=== PATIENT | female | born 1980 ===

== ENCOUNTER 2021-01-11 16:10 | Emergency (ER) | payer OTHER, SELFPAY ==
--- NOTE | ~2021-01-11 | CT_ITS ---
EXAMINATION: CT HEAD WITHOUT CONTRAST CLINICAL INFORMATION: Headache COMPARISON: None TECHNIQUE: Contiguous axial imaging was performed from the skull base to vertex without intravenous administration of contrast. This CT examination was performed using dose optimization techniques as appropriate, variously including the following: *Automated exposure control *Adjustment of mA and/or kV according to patient size (this includes techniques or standardized protocols for targeted exams where dose is matched to indication/reason for exam; i.e. extremities or head) *Use of iterative reconstruction technique DLP: 595 mGy-cm FINDINGS: There is no evidence of acute intracranial hemorrhage or territorial infarction. No abnormal mass effect or midline shift is seen. Schmidt to white matter differentiation is well preserved. No extra-axial fluid collections are identified. The ventricles are normal in size. There is no abnormal attenuation within the brain parenchyma. The osseous structures and soft tissues are normal. Mild mucosal thickening of the left sphenoid sinus. Other visualized paranasal sinuses and mastoid air cells are well aerated. CT/CT head/brain wo con IMPRESSION: No acute intracranial pathology.
--- NOTE | ~2021-01-11 | XR_ITS ---
EXAMINATION: XR CHEST CLINICAL INFORMATION: Chest pain COMPARISON: None TECHNIQUE: Frontal view of the chest was obtained. FINDINGS: Cardiac silhouette is normal in size. Lungs are well aerated. There is no lobar consolidation. No pleural effusion or pneumothorax. No gross osseous abnormality. XR/XR chest 1V IMPRESSION: No acute pulmonary pathology.
--- NOTE | 2021-01-11 16:17 | ECG_ITS ---
Test Reason : CHEST PRESSURE Blood Pressure : / mmHG Vent. Rate : 076 BPM Atrial Rate : 076 BPM P-R Int : 152 ms QRS Dur : 082 ms QT Int : 386 ms P-R-T Axes : 076 042 062 degrees QTc Int : 434 ms Normal sinus rhythm with sinus arrhythmia Possible Left atrial enlargement RSR' or QR pattern in V1 suggests right ventricular conduction delay Abnormal ECG No previous ECGs available Referred By: Generic ED Physician Electronically Signed By:ANDREEA ANDRE
[2021-01-11 16:27] VITALS: BP 168/110; BP 168/99; PULSE 68; RESP 20; TEMP 36.9; O2SAT 98; O2SAT 99; BMI 29.9
[2021-01-11 17:09] VITALS: BP 151/105; PULSE 68; RESP 20; TEMP 37.3; O2SAT 99
[2021-01-11 17:27] VITALS: BP 171/100; PULSE 71; RESP 12; O2SAT 97
--- NOTE | 2021-01-11 17:38 | ED_ITS ---
HPI - Chest Pain General Chief Complaint: Chest Pain Stated Complaint: cp Time Seen by Provider: 01/11/21 17:11 Source: patient Mode of arrival: ambulatory Limitations: no limitations History of Present Illness HPI narrative: [age] year female with past medical history of cyclic vomiting and heroin abuse presents to ED for multiple complaints. Patient states chest pain , BODYACHES, DOUBLE VISION, nausea, FEELING ANXIOUS and abdominal cramping FOR THE PAST 3 DAYS SINCE LAST HEROINE USE. Patient states she last used heroin 3 days ago. Patient went to detox program her blood pressure was too high so sent her to the ED. patient has been off methadone for months. Patient does not want to be on Suboxone. Patient states having headache after receiving nitro paste. MD complaint: chest discomfort Related Data Allergies Allergy/AdvReac Type Severity Reaction Status Date / Time haloperidol [From Haldol] AdvReac Shakiness Verified 01/11/21 16:34 metoclopramide [From Reglan] AdvReac Involuntary Verified 01/11/21 16:34 Spasms prochlorperazine AdvReac Involuntary Verified 01/11/21 16:34 [From Compazine] Spasms Review of Systems Review of Systems: Yes all other systems are reviewed and are negative Constitutional: Constitutional: Reports as per HPI, Reports no additional constitutional complaints and Reports headache(s) Eyes: Eyes: Reports as per HPI and Reports diplopia ENT: Reports system reviewed and no additional complaints, except as documented, Reports as per HPI and Reports headache(s) Cardiovascular: Cardiovascular: Reports as per HPI, Reports no additional cardiovascular complaints and Reports chest pain Respiratory: Respiratory: Reports as per HPI and Reports no additional respiratory complaints Gastrointestinal: Gastrointestinal: Reports as per HPI, Reports no additional gastrointestinal complaints, Reports abdominal pain and Reports nausea Genitourinary: Genitourinary: Reports no additional female genitourinary complaints and Reports as per HPI Musculoskeletal: Musculoskeletal: Reports no additional musculoskeletal complaints and Reports as per HPI Neurologic: Reports system reviewed and no additional complaints, except as documented, Reports as per HPI and Reports headache(s) Psychiatric: Psychiatric: Reports no additional psychiatric complaints and Reports as per HPI REPLACED BY [facility] Social History Social History Alcohol intake: former Patient Tobacco Use Status: Tobacco use Unknown Use of substances other than those prescribed or required for medical reasons: Yes Substance Use Type: Heroin Substance Use Frequency Other:: on 5th day of detox from heroin Advance Directives: No Advance Directives Information Provided: No Patient : No Physical Exam Vital Signs: Vital Signs: Last Vital Signs Temp 99.2 F 01/11/21 19:18 Pulse 65 01/11/21 22:07 Resp 16 01/11/21 22:07 BP 155/97 H 01/11/21 22:07 Pulse Ox 97 01/11/21 22:07 Body Mass Index 29.9 Const: General: cooperative, healthy appearing, comfortable, no acute distress , well developed, alert, awake and Physically active Orientation/consciousness: oriented to person, oriented to place, oriented to time and patient oriented x3 HENMT: Head: Yes normal to inspection, Yes No palpable skull fracture present, Yes normocephalic, Yes atraumatic and No abrasion Eyes: Other: PATIENT HAS VISION IN ALL VISUAL QUADRANTS. General: appearance normal, both eyes and all related structures Neck: Neck: Yes normal visual inspection, Yes full ROM, Yes no lymphadenopathy, Yes trachea midline, Yes supple and No tender Chest: Chest palpation & inspection: normal inspection of the chest and normal palpation of entire chest wall Resp: Effort & Inspection: normal respiratory effort and able to speak in complete sentences Auscultation: clear to auscultation bilaterally Cardio: Jugular venous distension: no JVD Heart sounds: S1 normal heart sound present and S2 normal heart sound present GI: Inspection: Yes normal to inspection Palpation (GI): Soft to palpation, not firm, nontender, no guarding and not rigid : General: No CVA tenderness and Yes no CVA tenderness Back/Spine/Pelvis: Back: no CVA tenderness, No CVA tenderness and No ecchymosis Skin: General skin exam: no rashes or lesions noted and elasticity normal Neuro: General: oriented to person, oriented to place, oriented to time, patient oriented x3, gait normal and CN's II-XI intact bilaterally Extrem: General: Yes normal to inspection and Yes full ROM Psych: Appearance: grossly normal, well kempt and not disheveled NIH Stroke Scale Level of Consciousness: Alert Level of Consciousness Questions: Answers both questions correctly Level of Consciousness Commands: Performs both tasks correctly Best Gaze: Normal Visual: No visual loss Facial Palsy: Normal Motor Arm (Right): No drift Motor Arm (Left): No drift Motor Leg (Right): No drift Motor Leg (Left): No drift Limb Ataxia: Absent Sensory: Normal Best Language: No aphasia Dysarthia: Normal Extinction and Inattention: No abnormality Score: 0 Course Course Course Narrative: History physical exam indicate some opiate withdrawal, but will do cardiovascular evaluation. EKG labs ordered. Chest x-ray ordered. Zofran and clonidine give read for opiate withdrawal symptoms. Fluids ordered. Reevaluation(s) Reevaluation #1: EKG negative for STEMI. Troponin negative. D-dimer negative. Perc score is 0. Patient is sleeping comfortably in bed after receiving Zofran,ATIVAN, gi COCKTAIL and clonidine. Patient will be discharged. Blood pressure monitor 129/70. NOT SUSPECTING STROKE. NEGATIVE FOR ANY NEURO DEFICIT Time: 21:24 Reevaluation #2: PATIENT STATES SHE FELT BETTER AND WANT TO BE DISCHARGED TO GO BACK TO HER DETOX PROGRAM. PATIENT INFORM THE S SYMPTOMS WERE DUE TO OPIATE WITHDRAWAL WILL BENEFIT FROM A DETOX PROGRAM. PATIENT ALSO INFORMED TO FOLLOW- UP WITH THE PRIMARY CARE PROVIDER TO KEEP TRACK OF HER BLOOD PRESSURE TO SEE IF SHE IS DEVELOPING HIGH BLOOD PRESSURE. PATIENT NOT HAVING AN MT OR PE. PATIENT INFORMED TO RETURN TO THE ED IF SYMPTOMS WORSEN OR HAS ANY OTHER CONCERNING SYMPTOMS. MDM - Chest Pain MDM Narrative Medical decision making narrative: Opiate withdrawal syndrome Lab Data Result diagrams: 01/11/21 17:44 01/11/21 17:43 Labs: Lab Results 01/11/21 01/11/21 01/11/21 Range/Units 17:43 17:43 17:43 WBC (4.8-10.8) X10*3/uL RBC (4.20-5.50) X10*6/uL Hgb (12.0-16.0) g/dl Hct (37-47) % MCV (80-98) fL MCH (27.0-33.0) pg MCHC (31.0-35.0) g/dl RDW (11.0-16.0) % Plt Count (160-400) X10*3/uL MPV (9.4-12.3) fL Immature Gran % (Auto) (0.0-0.4) % Neut % (Auto) (45-73) % Lymph % (Auto) (20-40) % Stoddard % (Auto) (2-11) % Eos % (Auto) (0-4) % Baso % (Auto) (0-2) % Lymph # (Auto) (1.2-4.9) X10*3/uL Stoddard # (Auto) (0.1-1.2) X10*3/uL Eos # (Auto) (0.0-0.4) X10*3/uL Baso # (Auto) (0.0-0.2) X10*3/uL Abs Immat Gran (auto) (0.00-0.03) X10*3/uL Absolute Neuts (auto) (2.0-8.3) X10*3/uL Absolute Nucleated RBC (0.0-0.012) X10*3/uL Nucleated RBC % (auto) (0.0-0.2) /100WBC PT 14.8 H (9.9-13.0) SEC INR 1.3 H (0.9-1.1) APTT 41.7 H (24.1-38.0) SEC D-Dimer < 200 NG/ML Sodium 138 (135-145) mmol/L Potassium 3.8 (3.3-5.1) mmol/L Chloride 104 (96-108) mmol/L Carbon Dioxide 21 L (22-29) mmol/L Anion Gap 17 (12-20) BUN 17 H (9-16) mg/dL Creatinine 0.71 (0.5-1.4) mg/dL Estim Creat Clear Calc 101.4 Estimated GFR > 60 Random Glucose 90 (60-115) mg/dL Calcium 9.5 (8.4-10.2) mg/dL Total Bilirubin 0.8 (0.0-1.0) mg/dL AST 16 (5-31) U/L ALT 13 (0-31) U/L Alkaline Phosphatase 58 (39-117) U/L Troponin I High Sens 3.6 (<3.5-17.0) ng/L B-Natriuretic Peptide 34 (<100) pg/mL Total Protein 7.0 (6.5-8.0) g/dL Albumin 4.5 (3.5-5.0) g/dL Beta HCG, Quant < 2 mIU/mL COVID-19 (AISHWARYA) (Negative) COVID-19 Clin Com 01/11/21 01/11/21 Range/Units 17:43 17:44 WBC 10.7 (4.8-10.8) X10*3/uL RBC 5.45 (4.20-5.50) X10*6/uL Hgb 15.4 (12.0-16.0) g/dl Hct 46.0 (37-47) % MCV 84.4 (80-98) fL MCH 28.3 (27.0-33.0) pg MCHC 33.5 (31.0-35.0) g/dl RDW 13.8 (11.0-16.0) % Plt Count 373 (160-400) X10*3/uL MPV 10.3 (9.4-12.3) fL Immature Gran % (Auto) 0.2 (0.0-0.4) % Neut % (Auto) 61.0 (45-73) % Lymph % (Auto) 29.0 (20-40) % Stoddard % (Auto) 9.4 (2-11) % Eos % (Auto) 0.2 (0-4) % Baso % (Auto) 0.2 (0-2) % Lymph # (Auto) 3.1 (1.2-4.9) X10*3/uL Stoddard # (Auto) 1.0 (0.1-1.2) X10*3/uL Eos # (Auto) 0.0 (0.0-0.4) X10*3/uL Baso # (Auto) 0.0 (0.0-0.2) X10*3/uL Abs Immat Gran (auto) 0.02 (0.00-0.03) X10*3/uL Absolute Neuts (auto) 6.5 (2.0-8.3) X10*3/uL Absolute Nucleated RBC 0.000 (0.0-0.012) X10*3/uL Nucleated RBC % (auto) 0.0 (0.0-0.2) /100WBC PT (9.9-13.0) SEC INR (0.9-1.1) APTT (24.1-38.0) SEC D-Dimer NG/ML Sodium (135-145) mmol/L Potassium (3.3-5.1) mmol/L Chloride (96-108) mmol/L Carbon Dioxide (22-29) mmol/L Anion Gap (12-20) BUN (9-16) mg/dL Creatinine (0.5-1.4) mg/dL Estim Creat Clear Calc Estimated GFR Random Glucose (60-115) mg/dL Calcium (8.4-10.2) mg/dL Total Bilirubin (0.0-1.0) mg/dL AST (5-31) U/L ALT (0-31) U/L Alkaline Phosphatase (39-117) U/L Troponin I High Sens (<3.5-17.0) ng/L B-Natriuretic Peptide (<100) pg/mL Total Protein (6.5-8.0) g/dL Albumin (3.5-5.0) g/dL Beta HCG, Quant mIU/mL COVID-19 (AISHWARYA) Negative (Negative) COVID-19 Clin Com See Note ECG Data ECG #1: Interpretation: Normal sinus rhythm. Ventricular rate 76. Parents of 152. QRS 82. QTC 434. Negative STEMI Discharge Plan Discharge Clinical Impression: Opiate withdrawal Patient Disposition: Home, Self-Care Instructions: Chest Pain (ED), Opioid Withdrawal (ED) Additional Instructions: Please follow-up with your primary care provider and detox program. Return to the ED for any slurred speech, facial droop, loss of vision, paralysis of extremities, headache, chest pain, shortness of breath, or any other concerning symptoms. Interventions: ED Discharge Assessment Last Done: 01/11/21 23:28 Print Language: Belarusian
[2021-01-11] MEDS: ondansetron HCL 4 MG/2 ML VIAL IVPUSH (17:45)
[2021-01-11] MEDS: 0.9 % Sodium Chloride 1,000 ML 999 ML IV (17:45)
[2021-01-11 17:50] VITALS: BP 160/113; PULSE 66
[2021-01-11] MEDS: cloNIDine HCL 0.1 MG TABLET PO (17:50)
[2021-01-11 17:51] LABS: MANUAL DIFF FLAG NO
[2021-01-11 17:52] LABS: Basophils Percent Auto 0.2 % (0-2); Eosinophils Percent Auto 0.2 % (0-4); Hemoglobin 15.4 g/dl (12.0-16.0); Imm Gran Abs Auto 0.02 X10*3/uL (0.00-0.03); Imm Gran Pct Auto 0.2 % (0.0-0.4); Lymphocytes Absolute Auto 3.1 X10*3/uL (1.2-4.9); Mean Corpuscular HGB Conc 33.5 g/dl (31.0-35.0); Mean Corpuscular Hemoglobin 28.3 pg (27.0-33.0); Mean Corpuscular Volume 84.4 fL (80-98); Mean Platelet Volume 10.3 fL (9.4-12.3); Monocytes Percent Auto 9.4 % (2-11); Neutrophils Absolute Auto 6.5 X10*3/uL (2.0-8.3); Platelet Count 373 X10*3/uL (160-400); Red Blood Count 5.45 X10*6/uL (4.20-5.50); Red Cell Distribution Width 13.8 % (11.0-16.0); White Blood Count 10.7 X10*3/uL (4.8-10.8)
[2021-01-11 17:58] LABS: INTERNATIONAL NORM RATIO 1.3 (0.9-1.1); Prothrombin Time 14.8 SEC (9.9-13.0)
[2021-01-11 18:00] LABS: Partial Thromboplastin Time 41.7 SEC (24.1-38.0)
[2021-01-11 18:09] LABS: Alanine Aminotransferase 13 U/L (0-31); Albumin Level 4.5 g/dL (3.5-5.0); Alkaline Phosphatase 58 U/L (39-117); Anion Gap 17 (12-20); Aspartate Amino Transferase 16 U/L (5-31); Bilirubin Total 0.8 mg/dL (0.0-1.0); Blood Urea Nitrogen 17 mg/dL (9-16); Calcium 9.5 mg/dL (8.4-10.2); Carbon Dioxide 21 mmol/L (22-29); Chloride 104 mmol/L (96-108); Creatinine Clr Calc Pharmacy 101.4; Estimated Glomerular Filt Rate > 60; Glucose Random 90 mg/dL (60-115); Potassium 3.8 mmol/L (3.3-5.1); Sodium 138 mmol/L (135-145)
[2021-01-11 18:11] LABS: COVID-19 Test Negative (Negative)
[2021-01-11 18:15] LABS: HCG Quantitative < 2 mIU/mL
[2021-01-11 18:16] LABS: B Type Natriuretic Peptide 34 pg/mL (<100); Troponin-I High Sensitivity 3.6 ng/L (<3.5-17.0)
[2021-01-11] MEDS: Ketorolac Tromethamine 15 MG/ML VIAL 30 MG IVPUSH (18:38)
--- NOTE | 2021-01-11 18:39 | PC.NURSE ---
pt declining to go to CT d/t pain. aware and medication just given. ct aware.
[2021-01-11 19:18] VITALS: BP 152/99; PULSE 71; RESP 18; TEMP 37.3; O2SAT 98
--- NOTE | 2021-01-11 19:35 | PC.NURSE ---
Pt alert and oriented x4, pt cooperative but noted to be very anxious and tearful. Pt states she feels anxious at this time. Pt denies abd pain, states nausea and headache, no vomiting noted. Pt blood pressure more controlled at 152/99 at this time. IV intact. Pt resting in stretcher, will continue to monitor.
[2021-01-11 19:47] LABS: D Dimer < 200 NG/ML
[2021-01-11] MEDS: LORazepam 2 MG/ML VIAL 1 MG IVPUSH (22:01)
[2021-01-11] MEDS: Famotidine/PF 20 MG/2 ML VIAL IVPUSH (22:02)
[2021-01-11] MEDS: Lidocaine HCl Viscous 2 % 15 ML SOLUTION MUCOUS MEM (22:02)
[2021-01-11] MEDS: PHENobarb/Hyoscy/Atropine/Scop 10 ML ELIXIR PO (22:02)
[2021-01-11 22:07] VITALS: BP 155/97; PULSE 65; RESP 16; O2SAT 97
--- NOTE | 2021-01-11 23:34 | PC.NURSE ---
Pt alert and oriented x4, calm and cooperative. Pt denies pain. Pt states withdrawal symptoms are manageable at this time, pt does not appear to be in distress at this time. IV removed. Vitals stable. 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
== END 2021-01-12 01:20 | disposition home or self-care (01) ==
PROVIDERS: Physician Assistant; Emergency Provider Emergency Medicine
DX: F11.13 Opioid abuse with withdrawal (principal); R07.9 Chest pain, unspecified; Z20.822 Contact with and (suspected) exposure to COVID-19; Z71.51 Drug abuse counseling and surveillance of drug abuser; Z79.899 Other long term (current) drug therapy
CPT/HCPCS: 36415; 70450; 71045; 80053; 83880; 84484; 84702; 85025; 85379; 85610; 85730; 87635; 93005; 96361; 96374; 96375; 99284; 99285; J1885; J2060; J2405

== ENCOUNTER 2021-01-12 02:02 | Emergency (ER) | payer OTHER, SELFPAY ==
[2021-01-12] VITALS (9 sets, daily range): BP systolic 123–199; BP diastolic 73–103; PULSE 62–79; RESP 13–18; TEMP 35.7–37; O2SAT 93–98; BMI 24.2
--- NOTE | 2021-01-12 02:18 | PC.NURSE ---
Pt discharged back to facility where she came from for detox, facility called by staff prior to discharge. Pt resturns due to being discharged from facility earlier today and does not have a bed for her. Told by facility to call intake in the morning [phone] at [phone], spoke with Bert. Pt currently states she is anxious, no pain at this time. Vitals stable.
[2021-01-12] MEDS: LORazepam 1 MG TABLET 2 MG PO ×2 (02:36→09:26)
--- NOTE | 2021-01-12 02:42 | ED_ITS ---
HPI - General Adult General Chief complaint: General Medical Stated complaint: detox Time Seen by Provider: 01/12/21 02:31 Source: patient Mode of arrival: EMS Limitations: no limitations History of Present Illness HPI narrative: Patient history of opiate abuse uses heroin last use was 3 days ago but just seen here and discharged to detox for detox does not any bed comes here to get a bed in the morning. Patient does complain of body aches anxious abdominal cramping asking for some medication to sleep and relax Related Data Allergies Allergy/AdvReac Type Severity Reaction Status Date / Time haloperidol [From Haldol] AdvReac Shakiness Verified 01/11/21 16:34 metoclopramide [From Reglan] AdvReac Involuntary Verified 01/11/21 16:34 Spasms prochlorperazine AdvReac Involuntary Verified 01/11/21 16:34 [From Compazine] Spasms Review of Systems Review of Systems: Yes all other systems are reviewed and are negative [facility] Social History Social History Alcohol intake: never Patient Tobacco Use Status: Current everyday Tobacco user Use of substances other than those prescribed or required for medical reasons: Yes Substance Use Type: Heroin Advance Directives: No Physical Exam Vital Signs: Vital Signs: Last Vital Signs Temp 97.8 F 01/12/21 03:00 Pulse 66 01/12/21 03:00 Resp 18 01/12/21 03:00 BP 199/103 H 01/12/21 03:00 Pulse Ox 98 01/12/21 03:00 Body Mass Index 24.2 Appearance: Alert. Oriented X3. No acute distress. Eyes: No pallor or icterus ENT: Pharynx normal. Oral Mucosa moist Neck: Normal inspection. Neck supple. CVS: Normal heart rate and rhythm. Pulses normal. Respiratory: No respiratory distress. Equal air entry bilateral, no wheezing /rales/rhonchi Abdomen: Soft and nontender. Bowel sounds are present, no mass palpable, no CVA tenderness Skin: Skin warm and dry. Normal skin color. Normal skin turgor. Extremities: No lower extremity edema. No calf tenderness Neuro: Oriented X 3. No motor deficit. Medical Decision Making MDM Narrative Medical decision making narrative: Patient heroin dependent need detox placement will get oil recovery operator in the morning to help her out patient medically cleared slept last night after Ativan and clonidine Discharge Plan Discharge Clinical Impression: Opiate addiction Qualifiers: Substance use status: in withdrawal Qualified Code(s): F11.23 - Opioid dependence with withdrawal
[2021-01-12] MEDS: cloNIDine HCL 0.2 MG TABLET PO ×2 (02:54→09:26)
--- NOTE | 2021-01-12 08:35 | PC.NURSE ---
pt states she has generalized aches, chest pressure, nausea. Pt states she feels like she is withdrawing. doc at bedside
--- NOTE | 2021-01-12 10:19 | MHC.RECOVSUP ---
Recovery Support note: Patient is a 40 year old Sammarinese speaking female who presented to [facility] for medical clearance after being sent from [facility]. This sports writer spoke with patient who reports that she would like to return to [facility] if possible. [facility] requested documentation of medical work up which was provided. [facility] states they will only consider taking patient if her blood pressure is stable (140-150 systolic max) for 24 hours without IV intervention. Discussed with patient. Patient reports she is feeling much better after being medicated and that she would rather discharge home. Patient reports she has very supportive family and a safe place to return. Patient reports last using on Sunday and that she feels she is through the worst of the withdrawal. Discussed outpatient resources with patient and provided information. Patient requested medication for blood pressure and patient's provider discussed this with her. Discussed case with patient's RN and ED provider.
[2021-01-12] MEDS: cloNIDine 0.2 MG PATCH.TDWK TRANSDERMA (10:30)
--- NOTE | 2021-01-12 11:39 | PC.NURSE ---
pt is slightly sleepy but ambulating with a steady gait, pt calling for a ride
== END 2021-01-12 11:48 | disposition home or self-care (01) ==
PROVIDERS: Emergency Provider Emergency Medicine Emergency Medical Services
DX: F11.23 Opioid dependence with withdrawal (principal); Z71.51 Drug abuse counseling and surveillance of drug abuser; Z79.899 Other long term (current) drug therapy
CPT/HCPCS: 99285

== ENCOUNTER 2021-01-12 18:53 | Emergency (ER) | payer OTHER, SELFPAY ==
[2021-01-12 20:35] VITALS: BP 174/111; PULSE 71; RESP 20; TEMP 36.7; O2SAT 99; BMI 29.9
--- NOTE | 2021-01-12 20:47 | ED.GENADULT ---
HPI - General Adult General Chief complaint: General Medical Stated complaint: cp, high bp Time Seen by Provider: 01/12/21 20:01 Source: patient Mode of arrival: ambulatory Limitations: no limitations History of Present Illness HPI narrative: Patient been here 2 times in last 48 hours for opiate withdrawal left today morning comes back as her blood pressure was high and was not able to get into detox patient does not have any history of hypertension but has strong family history hypertension. On arrival patient's blood pressure 174/111 patient is slightly anxious but in last:48 hours blood pressure been fluctuating 199/103 patient denies any headache patient already has Catapres TTS 2 patch on her Related Data Previous Rx's Medication Instructions Recorded lisinopril 20 mg tablet 20 mg PO DAILY #30 tab 01/12/21 lorazepam 1 mg tablet (Ativan) 1 mg PO TID PRN #10 tab 01/12/21 Allergies Allergy/AdvReac Type Severity Reaction Status Date / Time haloperidol [From Haldol] AdvReac Shakiness Verified 01/12/21 20:34 metoclopramide [From Reglan] AdvReac Involuntary Verified 01/12/21 20:34 Spasms prochlorperazine AdvReac Involuntary Verified 01/12/21 20:34 [From Compazine] Spasms PMFSH Social History Social History Alcohol intake: never Patient Tobacco Use Status: Current everyday Tobacco user Substance Use Type: Heroin Advance Directives: No Advance Directives Information Provided: No Patient : No Physical Exam Vital Signs: Vital Signs: Last Vital Signs Temp 98.9 F 01/12/21 22:25 Pulse 100 01/12/21 22:35 Resp 18 01/12/21 22:25 BP 160/99 H 01/12/21 22:35 Pulse Ox 99 01/12/21 22:25 Body Mass Index 29.9 Appearance: Alert. Oriented X3. Anxious Eyes: PERRLA, No Nystagmus ENT: Pharynx normal. Oral Mucosa moist Neck: Normal inspection. Neck supple. CVS: Normal heart rate and rhythm. Pulses normal. Respiratory: No respiratory distress. Equal air entry bilateral, no wheezing/rales/rhonchi Abdomen: Soft and nontender. Bowel sounds are present, no mass palpable, no CVA tenderness Skin: Skin warm and dry. Normal skin color. Normal skin turgor. Extremities: No lower extremity edema. No calf tenderness Neuro: Oriented X 3. No motor deficit. No sensory deficit.No cerebellar signs , cranial nerves II-XII intact Medical Decision Making MDM Narrative Medical decision making narrative: Patient blood pressure been fluctuating but is on the higher side with strong family history of hypertension will start her on lisinopril as patient is insisting on blood pressure medications of the patient was advised to follow with PCP but she want to start on medication has worn be able to get admitted in detox will start her on lisinopril Discharge Plan Discharge Clinical Impression: Opiate withdrawal Patient Disposition: Home, Self-Care Instructions: Hypertension (ED), Opioid Use Disorder (ED) Additional Instructions: Possible you have essential hypertension. Start taking medication for hypertension, check blood pressure should be less than 140/90 Follow-up with detox Continue to use Catapres patch and Ativan You are medically cleared for detox placement Prescriptions: New lisinopril 20 mg tablet 20 mg PO DAILY Qty: 30 RF: 0 No Action lorazepam [Ativan] 1 mg tablet 1 mg PO TID PRN (Reason: anxiety) Qty: 10 RF: 0
--- NOTE | 2021-01-12 20:56 | PC.NURSE ---
PT was discharged form this ED this morning to detox. PT mentioned that she wanted to go home during discharge. PT was discharged with rx for ativan. BP noted to be 123/73 prior to DC. PT has now returned to ED requesting clearance for detox. MD mendez.
[2021-01-12 21:01] VITALS: BP 147/100; PULSE 68; RESP 16
--- NOTE | 2021-01-12 21:19 | PC.NURSE ---
at bedside for primary eval.
[2021-01-12] MEDS: LORazepam 1 MG TABLET 2 MG PO (21:51)
[2021-01-12 22:25] VITALS: BP 160/99; PULSE 64; RESP 18; TEMP 37.2; O2SAT 99
[2021-01-12 22:28] VITALS: BP 160/99; PULSE 100
[2021-01-12] MEDS: Ondansetron ODT 4 MG TAB.RAPDIS TRANSLINGU (22:28)
[2021-01-12] MEDS: lisinopriL 20 MG TABLET PO (22:28)
[2021-01-12 22:35] VITALS: BP 160/99; PULSE 100
--- NOTE | 2021-01-12 22:54 | PC.NURSE ---
Pt requesting demographics for [facility]. This RN calling [facility], per staff, pt has to call in the morning after 0800. Per [facility], discharge paperwork noting medical clearance is all pt will need for admission. MD to document clearance on paperwork. Pt provided with additional detox contacts. Awaiting DC paperwork.
[2021-01-12 23:05] VITALS: BP 152/94
== END 2021-01-12 23:09 | disposition home or self-care (01) ==
PROVIDERS: Emergency Provider Internal Medicine
DX: F11.13 Opioid abuse with withdrawal (principal); I10 Essential (primary) hypertension; F17.200 Nicotine dependence, unspecified, uncomplicated; Z71.6 Tobacco abuse counseling; Z79.899 Other long term (current) drug therapy; Z71.51 Drug abuse counseling and surveillance of drug abuser
CPT/HCPCS: 99283; 99284

== ENCOUNTER 2022-08-30 07:20 | Emergency (ER) | payer OTHER, SELFPAY ==
[2022-08-30 07:27] VITALS: BP 148/87; PULSE 97; RESP 18; TEMP 36.7; O2SAT 95; BMI 29.2
--- NOTE | 2022-08-30 07:44 | ED_ITS ---
HPI - General Adult General Chief complaint: Wound/Laceration Stated complaint: R middle laceration Time Seen by Provider: 08/30/22 07:44 Source: patient Mode of arrival: ambulatory Limitations: no limitations History of Present Illness HPI narrative: Patient is a 41-year-old ljfea-sobt-aijnpjjo female presenting with laceration to right middle finger. She states that around 4:30 a.m. this morning she threw a fan, causing a laceration to her hand. She denies any decreased range of motion. She states that her tetanus was updated several months ago. She reports mild pain to the area of the laceration. She denies any numbness or tingling. Related Data Previous Rx's Medication Instructions Recorded lisinopril 20 mg tablet 20 mg PO DAILY #30 tabs 01/12/21 lorazepam 1 mg tablet (Ativan) 1 mg PO TID PRN anxiety #10 tabs 01/12/21 Allergies Allergy/AdvReac Type Severity Reaction Status Date / Time haloperidol [From Haldol] AdvReac Shakiness Verified 08/30/22 07:30 metoclopramide [From Reglan] AdvReac Involuntary Verified 08/30/22 07:30 Spasms prochlorperazine AdvReac Involuntary Verified 08/30/22 07:30 [From Compazine] Spasms Review of Systems Review of Systems: As per HPI Yes all other systems are reviewed and are negative Constitutional: Constitutional: Reports as per HPI [facility] Social History Social History Alcohol intake: never Patient Tobacco Use Status: Current everyday Tobacco user Substance Use Type: Heroin Advance Directives: No Advance Directives Information Provided: No Physical Exam ED Vital Signs: Vital Signs - 24 hr 08/30/22 07:27 Temperature 98.1 F Pulse Rate 97 Respiratory Rate 18 Blood Pressure 148/87 H Pulse Oximetry 95 Oxygen Delivery Method Room Air BMI result Body Mass Index 29.2 Const General: cooperative, healthy appearing and no acute distress Orientation/consciousness: oriented to person, oriented to place, oriented to time and patient oriented x3 Limitations: no limitations HENMT Head: Yes normocephalic and Yes atraumatic Ears: external ears normal General nose exam: Normal external nose present Face and sinus: Yes face symmetric Mouth: oropharynx normal and moist mucous membranes Throat: Yes uvula midline Eyes Pupils: Equal, round and reactive pupils present Neck Neck: Yes normal visual inspection and Yes supple Resp Effort & Inspection: normal respiratory effort and able to speak in complete sentences Auscultation: clear to auscultation bilaterally Cardio Rate: regular rate Rhythm: regular rhythm Heart sounds: S1 normal heart sound present and S2 normal heart sound present Skin General skin exam: elasticity normal and turgor normal Neuro General: oriented to person, oriented to place, oriented to time, patient oriented x3, moves all extremities, no focal motor deficits and CN's II-XI intact bilaterally Cranial nerves: Yes Equal, round and reactive pupils present Cognition (Neuro): normal cognition Extrem General: Yes full ROM, Yes no pedal edema and Yes no calf tenderness Right upper extremity: Extremity exam: right hand Details: normal capillary refill, neuromotor exam normal, neurosensory exam normal and laceration 3rd digit palmar aspect mid Psych Mental Status: mental status grossly normal Affect: normal affect Thought process: Normal thought process present Procedures Laceration Laceration 1: Site: hand Side (If applicable): right Size (cm): 2 Description: linear, irregular and clean Depth: simple, single layer Local Anesthetic: lidocaine 1% Amount of anesthesia used (mL): 2 Pre-repair: irrigated extensively Skin layer closed with: other (prolene) Size (cm): 5-0 Number of sutures: 4 Technique: simple, interrupted Medical Decision Making Medical Decision Making MDM Narrative: Patient is a 41-year-old gyqeb-zvdy-yeeoslhl female presenting with laceration to right middle finger. On exam patient is awake, A+O x3, in no acute distress, 2cm linear laceration to palmar surface of right 3rd finger with irregular borders, no active bleeding. Patient has full range of motion with flexion, extension, abduction, adduction, and opposition. Laceration repaired as per procedure note. Patient states her tetanus was updated several months ago. Wound bandaged, patient refused finger splint. Unlikely tendon or vascular injury based on exam findings. Unlikely fracture based on mechanism. Will discharge home with instructions to change dressing daily or if visibly soiled, perform daily wound checks, return for any worsening symptoms, suture removal in 10-14 days. Return precautions discussed at bedside. Differential Diagnosis Differential Diagnoses: The differential diagnosis associated with the presentation includes As above. External Record Review External record reviewed: Inpatient record, Office record and Outpatient record Discharge Plan Discharge Clinical Impression: Laceration of finger of right hand Patient Disposition: Home, Self-Care Instructions: Finger Laceration (ED), Laceration (DC) Additional Instructions: You have been evaluated in the emergency department today for a laceration to your finger. Your laceration was repaired in the emergency department with sutures. Please keep the area surrounding the laceration clean and dry and keep dressing in place for the next 24 hours. After that please change the dressing and assess the wound daily. Keep the area out of direct sunlight for the next 6 months to help prevent scarring. You should have the sutures removed in 10-14 days. If you develop fever, redness, swelling at the site of your laceration, or thick yellow drainage please come back to the ER for a wound check. Follow up with the hand surgeon, Dr. Guerrero. Prescriptions: No Action lisinopril 20 mg tablet 20 mg PO DAILY Qty: 30 0RF lorazepam [Ativan] 1 mg tablet 1 mg PO TID PRN (Reason: anxiety) Qty: 10 0RF Rx Instructions: Patient may request partial fill Referrals: Bee Guerrero MD [Physician] -
== END 2022-08-30 08:31 | disposition home or self-care (01) ==
PROVIDERS: Emergency Provider Student in an Organized Health Care Education/Training Program
DX: S61.212A Laceration without foreign body of right middle finger without damage to nail, initial encounter (principal); W26.9XXA Contact with unspecified sharp object(s), initial encounter; Y93.9 Activity, unspecified; Y92.9 Unspecified place or not applicable; Y99.9 Unspecified external cause status
CPT/HCPCS: 12041; 99282; 99284

== ENCOUNTER 2023-02-10 10:13 | Emergency (ER) | payer OTHER, SELFPAY ==
[2023-02-10 10:14] VITALS: BP 156/101; PULSE 109; RESP 16; TEMP 37.1; O2SAT 98; BMI 28.9
[2023-02-10 10:31] LABS: MANUAL DIFF FLAG NO
[2023-02-10 10:32] LABS: Basophils Absolute Auto 0.1 X10*3/uL (0.0-0.2); Basophils Percent Auto 0.4 % (0-2); Eosinophils Absolute Auto 0.2 X10*3/uL (0.0-0.4); Eosinophils Percent Auto 1.9 % (0-4); Hematocrit 44.4 % (37.0-47.0); Imm Gran Abs Auto 0.03 X10*3/uL (0.00-0.03); Imm Gran Pct Auto 0.3 % (0.0-0.4); Lymphocytes Absolute Auto 2.5 X10*3/uL (1.2-4.9); Lymphocytes Percent Auto 21.5 % (20-40); Mean Corpuscular HGB Conc 33.8 g/dl (31.0-35.0); Mean Corpuscular Volume 85.7 fL (80.0-98.0); Mean Platelet Volume 9.8 fL (9.4-12.3); Monocytes Percent Auto 8.9 % (2-11); Neutrophils Absolute Auto 7.9 x10*3/uL (2.0-8.3); Platelet Count 354 X10*3/uL (160-400); Red Blood Count 5.18 X10*6/uL (4.20-5.50); Red Cell Distribution Width 13.6 % (11.0-16.0); White Blood Count 11.7 X10*3/uL (4.8-10.8)
[2023-02-10 10:50] LABS: Alanine Aminotransferase 12 U/L (0-31); Albumin Level 4.5 g/dL (3.5-5.0); Alkaline Phosphatase 61 U/L (39-117); Anion Gap 14 (12-20); Aspartate Amino Transferase 15 U/L (5-31); Bilirubin Direct 0.2 mg/dL (0.0-0.5); Bilirubin Total 0.7 mg/dL (0.0-1.0); Blood Urea Nitrogen 15 mg/dL (9-16); Calcium 10.3 mg/dL (8.4-10.2); Carbon Dioxide 25 mmol/L (22-29); Chloride 105 mmol/L (96-108); Creatinine Clr Calc Pharmacy 102.9; Estimated Glomerular Filt Rate > 60; Glucose Random 96 mg/dL (60-115); Lipase 25 U/L (8-78); Potassium 3.5 mmol/L (3.3-5.1); Sodium 140 mmol/L (135-145); Total Protein 7.2 g/dL (6.5-8.0)
--- NOTE | 2023-02-10 11:14 | ED.ABDPAIN ---
HPI - Abdominal Pain General Chief Complaint: Abdominal Pain Stated Complaint: abd pain vomiting Time Seen by Provider: 02/10/23 10:39 Source: patient and family Mode of arrival: ambulatory Limitations: no limitations History of Present Illness HPI narrative: 42-year-old female with a history of cyclic vomiting for 20 years presents to the ER with complaints of abdominal pain, nausea and vomiting for 1 week. Patient reports she has been seen at [facility] emergency room with the last 48 hours and had labs, CT abdomen and pelvis but did not feel like they were managing her appropriately so she left. Patient states the only thing that helps my pain is narcotic pain medication Toradol does not work for me. She denies any diarrhea, constipation, urinary symptoms, fevers or chills. Related Data Previous Rx's Medication Instructions Recorded lisinopril 20 mg tablet 20 mg PO DAILY #30 tabs 01/12/21 lorazepam 1 mg tablet (Ativan) 1 mg PO TID PRN anxiety #10 tabs 01/12/21 Allergies Allergy/AdvReac Type Severity Reaction Status Date / Time haloperidol [From Haldol] AdvReac Shakiness Verified 08/30/22 07:30 metoclopramide [From Reglan] AdvReac Involuntary Verified 08/30/22 07:30 Spasms prochlorperazine AdvReac Involuntary Verified 08/30/22 07:30 [From Compazine] Spasms Review of Systems Review of Systems Yes all other systems are reviewed and are negative Constitutional: Reports no additional constitutional complaints, Denies body ache(s), Denies chills, Denies fever(s), Denies headache(s) and Denies weakness Eyes: Reports no additional eye complaints and Denies change in vision Reports system reviewed and no additional complaints, except as documented, Denies dizziness, Denies headache(s), Denies nasal congestion, Denies nasal discharge and Denies neck pain Cardiovascular: Reports no additional cardiovascular complaints, Denies chest pain, Denies leg edema and Denies dyspnea Respiratory: Reports no additional respiratory complaints, Denies cough and Denies dyspnea Gastrointestinal: Reports no additional gastrointestinal complaints, Reports abdominal pain, Denies constipation, Denies diarrhea, Reports nausea and Reports vomiting Genitourinary: Reports no additional female genitourinary complaints and Denies urinary incontinence Musculoskeletal: Reports no additional musculoskeletal complaints, Denies back pain, Denies arthralgias, Denies joint swelling, Denies neck pain, Denies numbness and Denies tingling Skin/Breast: Reports system reviewed and no additional complaints, except as docu and Denies rash Reports system reviewed and no additional complaints, except as documented, Denies Abnormal speech present, Denies dizziness, Denies headache(s), Denies numbness, Denies tingling and Denies weakness PMFSH Past Medical History Attestation statement: The following information was validated with the patient. Source: old records reviewed and nursing notes reviewed Social History Social History Alcohol intake: never Patient Tobacco Use Status: Current everyday Tobacco user Substance Use Type: Heroin Advance Directives: No Advance Directives Information Provided: No Physical Exam ED Vital Signs: Vital Signs - 24 hr 02/10/23 10:14 02/10/23 14:09 Temperature 98.7 F 98.4 F Pulse Rate 109 H 94 Respiratory Rate 16 20 Blood Pressure 156/101 H 187/124 H Pulse Oximetry 98 99 Oxygen Delivery Method Room Air Room Air BMI result Body Mass Index 28.9 Const Other: restless General: alert and anxious Orientation/consciousness: patient oriented x3 Limitations: no limitations HENMT Head: Yes normal to inspection Ears: hearing grossly normal bilaterally General nose exam: Normal external nose present Face and sinus: Yes normal facial exam Mouth: Normal oral and palatal mucosa present Throat: Yes posterior oropharynx normal Eyes General: appearance normal, both eyes and all related structures Pupils: Equal, round and reactive pupils present Neck Neck: Yes normal visual inspection Chest Chest palpation & inspection: normal inspection of the chest Resp Effort & Inspection: normal respiratory effort Auscultation: clear to auscultation bilaterally Cardio Rate: regular rate Rhythm: regular rhythm Peripheral pulses: Peripheral pulses 2+ throughout GI Inspection: Yes normal to inspection Palpation (GI): Soft to palpation and nontender Auscultation: normal bowel sounds Back/Spine/Pelvis Thoracic/Lumbar Spine: thoracic and lumbar spine normal to inspection Skin General skin exam: no rashes or lesions noted Neuro General: patient oriented x3, no focal motor deficits and normal sensation to monofilament Cranial nerves: Yes Equal, round and reactive pupils present Cognition (Neuro): normal cognition Speech: No Abnormal speech present Gait exam (Neuro): Normal gait present Motor exam (neuro): 5/5 motor strength present throughout Extrem General: Yes normal to inspection Procedures EJ/Peripheral Line Arm R: Time Out Performed: No Skin Cleansed in Sterile Fashion: Yes Size (gauge): 20 IV Secured and Dressing Applied: Yes Patient Tolerated Procedure: well Additional Comments: Via US by Dr Rubio Course Course Course Narrative: 1120-Nursing unable to obtain IV access Reevaluation(s) Reevaluation #1: 1130-Able to obtain an US IV and initiate fluids through the IV. Reevaluation #2: 1215-Continued vomiting. Multiple drug allergies. Bargaining for narcotic. ?narcotic seeking behavior. Reevaluation #3: 1240-I reviewed the patient's labs which are unremarkable. She has not provided a urine at this point. She has plans to go to a rehab facility from this emergency room Additional Reevaluation(s): 1300- Received records from [facility].? Patient was apparently admitted [id number] for intractable nausea and vomiting and was treated with Toradol, non opiates, low doses benzos, Zofran and left against medical advice. She had a CT A/P which was done which showed a moderate amount of stool in the colon otherwise unremarkable. She had a normal RUQ US with no evidence of acute genevieve. She was seen by psychiatry during this admission who felt symptoms were likely secondary to recent Suboxone relapse and opiate withdrawal symptoms. 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 Per the inpatient notes patient has been seen at [facility], [facility], [facility] in the last week for similar symptoms. Prior to going to [facility] she was a resident at [place] substance abuse facility for 3 weeks for opiate and crack cocaine addiction. She was treated at [facility] in the ER and given IV opiates, antimetics and discharged. She went to [facility], was seen in the ER and left AMA. Patient has plans of leaving today for inpatient rehab and has history of opiate abuse but this has not been elaborated on to me from the patient Medical Decision Making Medical Decision Making MDM Narrative: 42-year-old female with a history of cyclic vomiting for 20 years presents to the ER with complaints of abdominal pain, nausea and vomiting for 1 week.? Patient reports she has been seen at [facility] emergency room with the last 48 hours and had labs, CT abdomen and pelvis but did not feel like they were managing her appropriately so she left.? Patient states the only thing that helps my pain is narcotic pain medication Toradol does not work for me. She denies any diarrhea, constipation, urinary symptoms, fevers or chills. Patient quite anxious, restless. No focal abdominal pain on exam, no distention, +BS. Will attempt to get records from [facility] Will obtain labs, UA. Will give IV fluids, antiemetic, antioxyltic Differential Diagnosis Differential Diagnoses: The differential diagnosis associated with the presentation includes cyclic vomiting syndrome doubt acute appy, cholecystitis, renal colic, pyelo, AAA Admission/Observation Consideration of admission/observation: Escalation of care including admission/observation considered doubt acute abdomen Lab Data MDM Lab Attestation statement: I reviewed the patient's lab results. 02/10/23 10:27 02/10/23 10:27 Labs: Lab Results 02/10/23 Range/Units 10:27 WBC 11.7 H (4.8-10.8) X10*3/uL RBC 5.18 (4.20-5.50) X10*6/uL Hgb 15.0 (12.0-16.0) g/dl Hct 44.4 (37.0-47.0) % MCV 85.7 (80.0-98.0) fL MCH 29.0 (27.0-33.0) pg MCHC 33.8 (31.0-35.0) g/dl RDW 13.6 (11.0-16.0) % Plt Count 354 (160-400) X10*3/uL MPV 9.8 (9.4-12.3) fL Immature Gran % (Auto) 0.3 (0.0-0.4) % Neut % (Auto) 67.0 (45-73) % Lymph % (Auto) 21.5 (20-40) % [place] % (Auto) 8.9 (2-11) % Eos % (Auto) 1.9 (0-4) % Baso % (Auto) 0.4 (0-2) % Lymph # (Auto) 2.5 (1.2-4.9) X10*3/uL [place] # (Auto) 1.0 (0.1-1.2) X10*3/uL Eos # (Auto) 0.2 (0.0-0.4) X10*3/uL Baso # (Auto) 0.1 (0.0-0.2) X10*3/uL Abs Immat Gran (auto) 0.03 (0.00-0.03) X10*3/uL Absolute Neuts (auto) 7.9 (2.0-8.3) x10*3/uL Absolute Nucleated RBC 0.000 (0.0-0.012) X10*3/uL Nucleated RBC % (auto) 0.0 (0.0-0.2) /100WBC Sodium 140 (135-145) mmol/L Potassium 3.5 (3.3-5.1) mmol/L Chloride 105 (96-108) mmol/L Carbon Dioxide 25 (22-29) mmol/L Anion Gap 14 (12-20) BUN 15 (9-16) mg/dL Creatinine 0.70 (0.5-1.4) mg/dL Estim Creat Clear Calc 102.9 Estimated GFR > 60 Random Glucose 96 (60-115) mg/dL Calcium 10.3 H D (8.4-10.2) mg/dL Total Bilirubin 0.7 (0.0-1.0) mg/dL Direct Bilirubin 0.2 (0.0-0.5) mg/dL AST 15 (5-31) U/L ALT 12 (0-31) U/L Alkaline Phosphatase 61 (39-117) U/L Total Protein 7.2 (6.5-8.0) g/dL Albumin 4.5 (3.5-5.0) g/dL Lipase 25 (8-78) U/L Independent Historian Clinical information obtained from an independent historian. History obtained from or confirmed by: Friend External Record Review External record reviewed: Outside ED record Received records from [facility]. Patient was apparently admitted [id number] for intractable nausea and vomiting and was treated with Toradol, non opiates, low doses benzos, Zofran. Per the no outpatient was also admitted recently to [facility] in hospital for similar symptoms. Medications Administered Discontinued Medications Generic Name Dose Route Start Last Admin Trade Name Freq PRN Reason Stop Dose Admin Diphenhydramine HCl 50 mg 02/10/23 12:15 02/10/23 12:26 Diphenhydramine Hcl 50 Mg/Ml Vial IVPUSH 02/10/23 12:16 50 mg ONCE ONE Administration Famotidine 20 mg 02/10/23 10:58 02/10/23 11:37 Famotidine/Pf 20 Mg/2 Ml Vial IVPUSH 02/10/23 10:59 20 mg ONCE ONE Administration Sodium Chloride 1,000 mls @ 999 mls/hr 02/10/23 10:58 02/10/23 12:26 Ns IV 02/10/23 11:58 Infused .Q1H1M STA Infusion Sodium Chloride 1,000 mls @ 999 mls/hr 02/10/23 12:15 02/10/23 13:40 Ns IV 02/10/23 13:15 Infused .Q1H1M STA Infusion Ketorolac Tromethamine 30 mg 02/10/23 12:15 02/10/23 12:26 Ketorolac Tromethamine 30 Mg/Ml Vial IVPUSH 02/10/23 12:16 30 mg ONCE ONE Administration Lorazepam 1 mg 02/10/23 10:58 02/10/23 11:37 Lorazepam 2 Mg/Ml Vial IVPUSH 02/10/23 10:59 1 mg STAT STA Administration Lorazepam 1 mg 02/10/23 12:15 02/10/23 12:26 Lorazepam 2 Mg/Ml Vial IVPUSH 02/10/23 12:16 1 mg STAT STA Administration Lorazepam 1 mg 02/10/23 13:55 02/10/23 14:00 Lorazepam 2 Mg/Ml Vial IVPUSH 02/10/23 13:56 1 mg STAT STA Administration Ondansetron HCl 4 mg 02/10/23 10:58 02/10/23 11:37 Ondansetron Hcl 4 Mg/2 Ml Vial IVPUSH 02/10/23 10:59 4 mg ONCE ONE Administration Ondansetron HCl 4 mg 02/10/23 12:15 02/10/23 12:27 Ondansetron Hcl 4 Mg/2 Ml Vial IVPUSH 02/10/23 12:16 4 mg ONCE ONE Administration Discharge Plan Discharge Clinical Impression: Cyclic vomiting syndrome Patient Disposition: Home, Self-Care Instructions: Cyclic Vomiting Syndrome (ED) Prescriptions: No Action lisinopril 20 mg tablet 20 mg PO DAILY Qty: 30 0RF lorazepam [Ativan] 1 mg tablet 1 mg PO TID PRN (Reason: anxiety) Qty: 10 0RF Rx Instructions: Patient may request partial fill Interventions: ED Discharge Assessment Last Done: 02/10/23 15:18 Discharge Date/Time: 02/10/23 15:20
[2023-02-10] MEDS: ondansetron HCL 4 MG/2 ML VIAL IVPUSH ×2 (11:37→12:27)
[2023-02-10] MEDS: 0.9 % Sodium Chloride 1,000 ML 999 ML IV ×2 (11:37→12:26)
[2023-02-10] MEDS: LORazepam 2 MG/ML VIAL 1 MG IVPUSH ×3 (11:37→14:00)
[2023-02-10] MEDS: Famotidine/PF 20 MG/2 ML VIAL IVPUSH (11:37)
[2023-02-10] MEDS: diphenhydrAMINE HCL 50 MG/ML VIAL IVPUSH (12:26)
[2023-02-10] MEDS: Ketorolac Tromethamine 30 MG/ML VIAL IVPUSH (12:26)
[2023-02-10 14:09] VITALS: BP 187/124; PULSE 94; RESP 20; TEMP 36.9; O2SAT 99
--- NOTE | 2023-02-10 14:09 | PC.NURSE ---
PT LOBBYING FOR NARCOTICS UPON ARRIVAL TO FACILITY. PT HAS HAD IRRETRACTABLE NAUSEA, COMPLICATED BY INCREASING AGITATION AND BECOMING INCREASINGLY BELLIGERENT. SHE HAS A ROOM AT [facility], THEY ARE WILLING TO PICK HER UP ONCE DISCHARGE PAPERWORK IS FAXED OVER. PAPERWORK PENDING.
== END 2023-02-10 15:20 | disposition home or self-care (01) ==
PROVIDERS: Emergency Provider Student in an Organized Health Care Education/Training Program
DX: R11.15 Cyclical vomiting syndrome unrelated to migraine (principal); R10.9 Unspecified abdominal pain; Z76.5 Malingerer [conscious simulation]; F17.200 Nicotine dependence, unspecified, uncomplicated; Z79.899 Other long term (current) drug therapy
CPT/HCPCS: 36410; 36415; 36573; 80048; 80076; 83690; 85025; 96361; 96374; 96375; 96376; 99284; 99285; J1200; J1885; J2060; J2405